=== PATIENT | female | born 1975 | race Caucasian/White ===

== ENCOUNTER 2021-11-23 13:52 | Emergency (ER) | payer BC, MEDICARE, OTHER ==
[~2021-11-23] VITALS: Ht 172.7 cm; Wt 129.0 kg
[~2021-11-23 13:52] MED LIST: KETO10TA2 PO; NO HOME MEDS
[2021-11-23 14:32] LABS: BASOPHILS % (AUTO) 0.4 % (0-1); EOSINOPHILS # (AUTO) 0.1 X10'3 (0-0.9); EOSINOPHILS % (AUTO) 1.4 % (0-6); HEMATOCRIT 35.6 % (35.0-45.0); HEMOGLOBIN 11.9 g/dl (12.0-16.0); LYMPHOCYTES # (AUTO) 2.1 X10'3 (1.1-4.8); LYMPHOCYTES % (AUTO) 23.5 % (21-51); MEAN CORPUSCULAR HEMOGLOBIN 29.5 PG (27.0-31.0); MEAN CORPUSCULAR HGB CONC 33.5 g/dL (33.0-36.5); MEAN CORPUSCULAR VOLUME 88.2 FL (78-98); MEAN PLATELET VOLUME 7.5 FL (7.4-10.4); MONOCYTES # (AUTO) 0.7 X10'3 (0-0.9); MONOCYTES % (AUTO) 7.8 % (2-12); NEUTROPHILS # (AUTO) 5.9 X10'3 (1.8-7.7); NEUTROPHILS % (AUTO) 66.9 % (42-75); PLATELET COUNT 288 X10'3 (140-440); RED BLOOD COUNT 4.04 X10'6 (4.20-5.60); WHITE BLOOD COUNT 8.8 X10'3 (4.5-11.0)
[2021-11-23 14:40] LABS: ALANINE AMINOTRANSFERASE 22 U/L (12-78); ALBUMIN 3.4 G/DL (3.4-5.0); ALBUMIN/GLOBULIN RATIO 0.7 (1.1-1.5); ALKALINE PHOSPHATASE 108 IU/L (46-116); ANION GAP 14 (8-16); ASPARTATE AMINO TRANSFERASE 16 U/L (10-37); BILIRUBIN,TOTAL 0.3 MG/DL (0.1-1.0); BLOOD UREA NITROGEN 27 MG/DL (7-18); BUN/CREATININE RATIO 22.5 (6.6-38.0); CALCIUM 8.7 MG/DL (8.5-10.1); CHLORIDE 106 MMOL/L (99-107); GLUCOSE 99 MG/DL (70-104); LIPASE < 50 U/L (73-393); POTASSIUM 3.6 MMOL/L (3.5-5.1); SODIUM 139 MMOL/L (135-145); TOTAL CARBON DIOXIDE 19.2 MMOL/L (24-32); eGFR 48 ML/MIN
[2021-11-23 14:58] LABS: CLARITY,URINE SLIGHTLY CLOUDY (Clear); COLOR,URINE YELLOW (Yellow); GLUCOSE, URINE NEGATIVE (Neg); KETONES,URINE NEGATIVE (Neg); LEUKOCYTE ESTERASE ,URINE NEGATIVE (Neg); NITRITES, URINE NEGATIVE (Neg); OCCULT BLOOD,URINE MODERATE (Neg); PROTEIN,URINE NEGATIVE (Neg); UROBILINOGEN,URINE 0.2 E.U/dL (0.2-1.0)
[2021-11-23 15:01] LABS: URINE HCG NEGATIVE (NEG)
[2021-11-23 15:15] LABS: UA COLLECTION TYPE CLN CATCH MIDSTREAM
[2021-11-23 15:16] LABS: SQUAMOUS EPITHELIAL CELL,UR MODERATE /LPF (FEW)
[2021-11-23 15:17] LABS: BACTERIA,URINE FEW /HPF (Neg); RBC,URINE 50-100 /HPF (0-2)
[2021-11-23] MEDS ORDERED: IBUP-1985 PO (16:26)
[2021-11-23] MEDS ORDERED: CEPH-585 PO (16:26)
[2021-11-23] MEDS ORDERED: HYDR-3972 PO (16:26)
[2021-11-23] MEDS ORDERED: FLO0.4C PO (16:26)
[2021-11-23] MEDS ORDERED: ondansetron 4mg rapidly disintigrating tab PO ONE (16:30)
[2021-11-23] MEDS ORDERED: ketorolac trometh. 30mg/ml inj. IV ONE (16:30)
[2021-11-23] MEDS ORDERED: cephalexin 250mg capsule PO ONE (16:30)
[2021-11-23] MEDS ORDERED: normal saline 1000ML IV soln IVB ONE (16:30)
[2021-11-23] MEDS ORDERED: ONDA-104 PO (16:35)
--- NOTE | 2021-11-23 18:22 | NUR ---
bedside report to tyler medina
[2021-11-23 19:23] VITALS: BP 113/68
== END 2021-11-23 19:26 | disposition home or self-care (01) ==
LOC: ER 13:53
DX: R82.71 Bacteriuria (principal); N20.0 Calculus of kidney; Z88.0 Allergy status to penicillin; Z79.899 Other long term (current) drug therapy
CPT/HCPCS: 36415; 74018; 74176; 80053; 81001; 81025; 83690; 85025; 87088; 96361; 96374; 99285; J1885; J7030

== ENCOUNTER 2023-03-13 18:46 | Emergency (ER) | payer OTHER ==
[~2023-03-13] VITALS: Ht 172.7 cm; Wt 133.6 kg
[~2023-03-13 18:46] MED LIST changes: +IBUP-1985 PO; +ONDA-104 PO
[2023-03-13 18:48] VITALS: BP 135/91
[2023-03-13 19:12] LABS: URINE HCG NEGATIVE (NEG)
[2023-03-13 19:15] LABS: CLARITY,URINE SLIGHTLY CLOUDY (Clear); COLOR,URINE YELLOW (Yellow); GLUCOSE, URINE NEGATIVE (Neg); KETONES,URINE NEGATIVE (Neg); LEUKOCYTE ESTERASE ,URINE LARGE (Neg); NITRITES, URINE NEGATIVE (Neg); OCCULT BLOOD,URINE TRACE-INTACT (Neg); PH,URINE 6.5 (4.8-8.0); PROTEIN,URINE TRACE mg/dl (Neg); UROBILINOGEN,URINE 0.2 E.U/dL (0.2-1.0)
[2023-03-13 19:24] LABS: UA COLLECTION TYPE CLN CATCH MIDSTREAM
[2023-03-13 19:27] LABS: RBC,URINE 0-2 /HPF (0-2); WBC,URINE 20-30 /HPF (0-4)
[2023-03-13 19:28] LABS: BACTERIA,URINE 2+ /HPF (Neg); MUCUS STRANDS FEW /LPF (Neg); SQUAMOUS EPITHELIAL CELL,UR FEW /LPF (FEW); TRANSITIONAL EPI CELLS,URINE FEW /HPF; TRIPLE PHOSPHATE CRYST 1+ /HPF (NEGATIVE); WBC CLUMPS,URINE FEW /HPF (NEGATIVE)
[2023-03-13 20:08] LABS: BASOPHILS % (AUTO) 0.2 % (0-1); EOSINOPHILS % (AUTO) 0.3 % (0-6); HEMATOCRIT 38.5 % (35.0-45.0); HEMOGLOBIN 12.4 g/dl (12.0-16.0); LYMPHOCYTES # (AUTO) 2.4 X10'3 (1.1-4.8); LYMPHOCYTES % (AUTO) 20.9 % (21-51); MEAN CORPUSCULAR HEMOGLOBIN 28.5 PG (27.0-31.0); MEAN CORPUSCULAR HGB CONC 32.3 g/dL (33.0-36.5); MEAN CORPUSCULAR VOLUME 88.3 FL (78-98); MEAN PLATELET VOLUME 7.9 FL (7.4-10.4); MONOCYTES # (AUTO) 0.9 X10'3 (0-0.9); MONOCYTES % (AUTO) 7.8 % (2-12); NEUTROPHILS % (AUTO) 70.8 % (42-75); PLATELET COUNT 280 X10'3 (140-440); RED BLOOD COUNT 4.36 X10'6 (4.20-5.60); RED CELL DISTRIBUTION WIDTH 13.9 % (11.5-14.5); WHITE BLOOD COUNT 11.3 X10'3 (4.5-11.0)
[2023-03-13 20:17] LABS: ALANINE AMINOTRANSFERASE 16 U/L (12-78); ALBUMIN 3.2 G/DL (3.4-5.0); ALBUMIN/GLOBULIN RATIO 0.7 (1.1-1.5); ALKALINE PHOSPHATASE 117 IU/L (46-116); ANION GAP 7 (8-16); ASPARTATE AMINO TRANSFERASE 14 U/L (10-37); BILIRUBIN,TOTAL 0.5 MG/DL (0.1-1.0); BLOOD UREA NITROGEN 15 MG/DL (7-18); BUN/CREATININE RATIO 10.1 (10.0-20.0); CALCIUM 8.4 MG/DL (8.5-10.1); CHLORIDE 105 MMOL/L (99-107); CREATININE 1.49 MG/DL (0.40-0.90); GLUCOSE 110 MG/DL (70-104); LIPASE < 50 U/L (73-393); POTASSIUM 3.5 MMOL/L (3.5-5.1); SODIUM 136 MMOL/L (135-145); TOTAL CARBON DIOXIDE 23.6 MMOL/L (24-32); TOTAL PROTEIN 7.9 G/DL (6.4-8.2); eGFR 37 ML/MIN
[2023-03-13] MEDS ORDERED: ONDA4TAB12 PO (21:49)
[2023-03-13] MEDS ORDERED: CEFD300C3 PO (21:49)
[2023-03-13] MEDS ORDERED: cephalexin 250mg capsule PO ONE (21:50)
[2023-03-13] MEDS ORDERED: ondansetron 4mg rapidly disintigrating tab PO ONE (21:50)
== END 2023-03-13 22:01 | disposition home or self-care (01) ==
LOC: ER 18:47
DX: N10 Acute pyelonephritis (principal); Z87.442 Personal history of urinary calculi; Z88.0 Allergy status to penicillin; Z79.899 Other long term (current) drug therapy
CPT/HCPCS: 36415; 80053; 81001; 81025; 83690; 85025; 87077; 87088; 87186; 99283

== ENCOUNTER 2025-03-27 01:16 | Emergency (ER) | payer OTHER ==
[~2025-03-27] VITALS: Ht 172.7 cm; Wt 119.6 kg
[~2025-03-27 01:16] MED LIST changes: +ONDA-243 PO
--- NOTE | 2025-03-27 02:18 | Physician Documentation ---
History of Present Illness ~ Chief Complaint: Flank Pain Stated Complaint: ABDOMINAL/SIDE PAIN AND VOMITING Time Seen by MD: 02:03 Primary Medical Doctor: Lidya Grant Source: patient Mode of Arrival: POV, Ambulatory Exam Limitations: no limitations HPI Chief Complaint: RIGHT FLANK PAIN, ABDOMINAL PAIN Caveat: None Independent Historians: None History of Present Illness: Patient is a 49-year-old woman who comes in complaining of right kidney pain" and right flank pain. This pain began three days ago intermittently in has become progressively worse in his now constant. Patient's pain is currently 7/10. Patient has had associated nausea and vomiting. No diarrhea. Patient denies any burning with urination, dysuria urgency or frequency. Patient states that she has had subjective fevers and chills. Patient states that she has had kidney infections and kidney stones in the past with similar symptoms. Review of systems: All systems were reviewed and are negative except for what is indicated in the history of present illness. Past Medical History: Kidney stones Past Surgical History: Urological surgeries Social History: Medications: Reviewed as documented Nursing Notes Allergies: Reviewed as documented in Nursing Notes Medication Reconciliation Allergies: Coded Allergies: Penicillins (Verified Allergy, Unknown, 03/27/25) PT TOLERATED KEFLEX 03/2023 Scheduled Escitalopram Oxalate (Escitalopram Oxalate), 1 TAB PO DAILY, (Reported) Ibuprofen (Ibuprofen), 1 TAB PO Q8H Pantoprazole Sodium (Pantoprazole Sodium), 1 TAB PO DAILY, (Reported) Semaglutide (Ozempic), 1 MG SQ Q7D, (Reported) Discontinued Medications Ketorolac Tromethamine (Ketorolac Tromethamine), 1 TAB PO Q8H Discontinued Reason: patient no longer taking ONDANSETRON ODT 4mg tablet (Ondansetron Odt), 1 TABLET PO Q6H PRN for nausea/vomiting Discontinued Reason: patient no longer taking Ondansetron HCl (Ondansetron HCl), 1 TAB PO Q8H Discontinued Reason: patient no longer taking Past Medical History Past Medical History: Hernia, Kidney Stones Past Surgical History: cholecystectomy Other Past Surgical History: hernia repair Patient History: (Cancer) Malignant carcinoid tumor GRANDFATHER OR GRANDMOTHER, Onset:40's - 50 (Grandfather brain cancer) GRANDFATHER OR GRANDMOTHER, Onset:60 years & older (Maternal grandmother lung cancer) Alzheimer's disease GRANDFATHER OR GRANDMOTHER, Onset:60 years & older (Paternal grandma ) Hypercholesterolemia FAMILY/OTHER, Onset: - No Family History of: (CABG) Coronary artery bypass grafting (CAD) Coronary arteriosclerosis (CHF) Congestive heart failure (COPD) Chronic obstructive lung disease (CVA) Cerebrovascular accident (DM Type 2) Diabetes mellitus type 2 (DM Type1) Diabetes mellitus type 1 (NH) Myocardial infarction (PVD) Peripheral vascular disease (TIA) Transient ischemic attack Aortic aneurysm Asthma Cardiac arrest Alcohol Use: None Drug Use: none Lives with: Family Lives In: Home Occupation: employed Review of Systems All Other Systems at this time: Reviewed and Negative ROS Patient denies any other acute symptoms other than above. All other systems are negative Physical Exam Vital Signs: RN Vital Signs have been reviewed: Yes, Temperature: 100.7, Source: Oral, Heart Rate: 125, Respiratory Rate: 18, BP: 140/69, Pulse Oximetry: 96, Weight: 119.600 Pulse Oximetry Reflects: adequate oxygenation Physical Exam General Appearance: Mild distress HEENT: Normal OP, moist oral mucosa, PERRL, EOMI Neck: supple, normal ROM, trachea midline Pulmonary: No respiratory distress, CTA, BS equal Cardiac: RRR, no murmur, rub or gallop, GI: nondistended, soft, diffuse lower abdominal tenderness, normal bowel sounds, no guarding, no rebound : No CVA tenderness on the right, positive CVA tenderness on the left Extremities: normal ROM, no swelling, non-tender Skin: intact, dry, warm, no rashes Neuro: AAOx3, speech is clear, no focal motor weakness Psych: normal affect, good eye contact, no apparent hallucination, normal speech Progress Progress Note Jaden: d/w Dr. Lamb plan for OR today Results/Orders Reviewed/noted all lab results: Yes Results/Orders Orders - REJI PALACIO MD Ed Iv Pain Medications (03/27/25 02:19) Monitor (03/27/25 02:19) Saline Lock (03/27/25 02:19) Cult Urine + [place] [facility] (03/27/25 02:43) Ct Abdomen Pelvis (03/27/25 04:48) Completed Orders - REJI PALACIO MD Cbc/Diff (03/27/25 02:19) Ondansetron Inj. (Zofran 4mg/2ml Vial) (03/27/25 02:20) Normal Saline 1000ml (0.9% Sodium Chlori (03/27/25 02:20) Ketorolac Trometh 15mg/Ml Vial (Toradol (03/27/25 02:20) Ua W/Microscopic, Cult If Ind (03/27/25 01:37) BMP (03/27/25 04:12) Lipase (03/27/25 04:12) Ct Abdomen Pelvis (03/27/25 04:48) Morphine 4mg/Ml Inj. (Morphine Inj.) (03/27/25 06:00) Ua W/Microscopic, Cult If Ind (03/27/25 05:50) Vital Signs 03/27/25 03/27/25 03/27/25 03/27/25 01:29 02:11 02:37 04:18 Temp 100.7 100.7 Pulse 125 99 Resp 20 18 18 18 B/P (MAP) 140/69 122/62 (82) Pulse Ox 96 98 O2 Flow Rate 0 03/27/25 03/27/25 03/27/25 03/27/25 06:15 06:16 06:29 08:00 Pulse 71 Resp 20 16 16 16 B/P (MAP) 126/69 (88) Pulse Ox 98 03/27/25 03/27/25 03/27/25 03/27/25 08:54 09:48 10:00 10:10 Temp 97.5 Pulse 69 75 76 72 Resp 18 16 12 12 B/P (MAP) 113/69 (84) 91/56 (68) 102/57 (72) 104/64 (77) Pulse Ox 98 97 94 99 O2 Delivery Nasal Cannula Nasal Cannula Nasal Cannula O2 Flow Rate 10.0 10.0 10.0 03/27/25 03/27/25 10:20 10:30 Pulse 75 72 Resp 13 15 B/P (MAP) 105/62 (76) 108/68 (81) Pulse Ox 96 97 O2 Delivery Room Air Room Air O2 Flow Rate 0.0 0.0 Laboratory Tests Test 03/27/25 01:37 03/27/25 02:49 03/27/25 05:23 03/27/25 05:50 Urine Specimen Description Cln catch midstream Cln catch midstream Urine Color Yellow Yellow Urine Clarity Clear Clear Urine pH 6.5 6.5 Urine Specific [place] 1.010 <=1.005 Urine Protein 30 H Negative Urine Glucose (UA) Negative Negative Urine Ketones Negative Negative Urine Occult Blood Small Trace-intact Urine Nitrite Negative Negative Urine Bilirubin Negative Negative Urine Urobilinogen 0.2 0.2 Urine Leukocyte Esterase Small H Small H Urine RBC 0-2 0-2 Urine WBC 30-50 H 50-100 H Urine Squamous Epithelial Cells Moderate Many Urine Bacteria 2+ Few Urine Culture Indicated Indicated Rejected for culture Volume Urine Centrifuged 10 ml 10 ml Urine Comment White Blood Count 10.7 Red Blood Count 4.16 L Hemoglobin 12.2 Hematocrit 37.3 Mean Corpuscular Volume 89.6 Mean Corpuscular Hemoglobin 29.3 Mean Corpuscular Hemoglobin Concent 32.7 L Red Cell Distribution Width 13.5 Platelet Count 209 Mean Platelet Volume 7.8 Neutrophils (%) (Auto) 82.2 H Lymphocytes (%) (Auto) 8.5 L Monocytes (%) (Auto) 8.3 Eosinophils (%) (Auto) 0.8 Basophils (%) (Auto) 0.2 Neutrophils # (Auto) 8.8 H Lymphocytes # (Auto) 0.9 L Monocytes # (Auto) 0.9 Eosinophils # (Auto) 0.1 Basophils # (Auto) 0.0 CBC Comment Chemistry Comments Sodium Level 135 Potassium Level 3.6 Chloride Level 109 H Carbon Dioxide Level 13.1 *L Anion Gap 13 Blood Urea Nitrogen 39 H Creatinine 3.52 H Estimated GFR/1.73 m2 14 BUN/Creatinine Ratio 11.1 Glucose Level 109 H Calcium Level 8.0 L Albumin 2.7 L Lipase 24 Urine Transitional Epithelial Cells Few Test 03/27/25 06:45 Urine Specimen Description Straight cath Urine Color Yellow Urine Clarity Clear Urine pH 6.0 Urine Specific [place] <=1.005 Urine Protein Trace Urine Glucose (UA) Negative Urine Ketones Negative Urine Occult Blood Small Urine Nitrite Negative Urine Bilirubin Negative Urine Urobilinogen 0.2 Urine Leukocyte Esterase Moderate H Urine RBC 0-2 Urine WBC 10-20 H Urine Squamous Epithelial Cells Few Urine Bacteria Few Urine Mucus None seen Urine Culture Indicated Indicated Volume Urine Centrifuged 10 ml Urine Comment Microbiology Date/Time Source Procedure Growth Status 03/27/25 07:48 Urine Straight Cath Urine Culture - Preliminary NO GROWTH AFTER 1 DAY Resulted Medical Decision Making Findings Differential diagnosis includes but is not limited to: Pyelonephritis, ureteral colic, hydronephrosis, renal colic, urinary tract infection Laboratory data independent interpretation: CBC: Unremarkable CMP: Urinalysis: WBC 30-50, RBC 0-2, moderate epithelial cells, nitrite negative Emergency department course/medical decision-making: Patient presents with symptoms that may be consistent with pyelonephritis or kidney stones. We do not have CT imaging this evening. Patient is afebrile nontoxic appearing. Patient is given Zofran 4 mg IV, Toradol 15 mg IV for her pain and 1 L of normal saline. 3:18 a.m.: Patient appears comfortable and is sleeping. Consultation/communications: Departure Disposition: ADMITTED INPATIENT Admitted to Inpatient Unit: other Impression: Primary Impression: Urolithiasis Qualified Codes: N20.1 - Calculus of ureter Additional Impression: Renal failure Qualified Codes: N17.9 - Acute kidney failure, unspecified Referrals: NO PRIMARY CARE PROVIDER (PCP) Signature Scribe Signature: No scribe Attestation: No scribe REJI PALACIO MD Mar 27, 2025 02:18 MIGUELITO FANG MD Mar 27, 2025 07:34
[2025-03-27 02:29] LABS: LEUKOCYTE ESTERASE ,URINE SMALL (Neg); NITRITES, URINE NEGATIVE (Neg); OCCULT BLOOD,URINE SMALL (Neg)
[2025-03-27 02:31] LABS: UA COLLECTION TYPE CLN CATCH MIDSTREAM
[2025-03-27] MEDS: normal saline 1000ML IV soln IVB ONE (02:36)
[2025-03-27] MEDS: ondansetron/PF 4mg/2ml inj IV ONE (02:37)
[2025-03-27] MEDS: ketorolac trometh 15mg/ml vial 15 MG/ML ML IV ONE (02:37)
[2025-03-27 02:42] LABS: SQUAMOUS EPITHELIAL CELL,UR MODERATE /LPF (FEW)
[2025-03-27 03:02] LABS: MEAN PLATELET VOLUME 7.8 FL (7.4-10.4); RED CELL DISTRIBUTION WIDTH 13.5 % (11.5-14.5)
[2025-03-27 04:18] VITALS: TEMP 100.7
[2025-03-27 05:59] LABS: LEUKOCYTE ESTERASE ,URINE SMALL (Neg); NITRITES, URINE NEGATIVE (Neg); OCCULT BLOOD,URINE TRACE-INTACT (Neg)
[2025-03-27 06:04] LABS: SQUAMOUS EPITHELIAL CELL,UR MANY /LPF (FEW); UA COLLECTION TYPE CLN CATCH MIDSTREAM
[2025-03-27 06:06] LABS: CREATININE 3.52 MG/DL (0.40-0.90); eCRCL 19 ML/MIN; eGFR 14 ML/MIN
--- NOTE | 2025-03-27 06:11 | RADIOLOGY REPORT ---
EXAM: CT CT ABDOMEN PELVIS HISTORY: Abdominal Pain COMPARISON: CT ABDOMEN PELVIS on DOS: 11/23/21 TECHNIQUE: Helical CT images of the abdomen and pelvis were performed without contrast. Sagittal and coronal ref ormatted images were obtained. This CT exam was performed using one or more of the following dose red uction techniques: Automated exposure control, adjustment of the mA and/or kV according to patient si ze, or use of iterative reconstruction technique. Radiation Dose: CT Abdomen/Pelvis: CTDIvol 35.9 mGy, DLP 1848.4 mGy*cm. FINDINGS: Urinary tract: There is a right ureteropelvic junction calculus measuring 8 mm (image 60, series 2) with associated moderate right hydronephrosis. There are numerous bilateral nonobstructing renal luz culi. There is left renal midpole cortical cyst. There is left renal cortical atrophy. There is le ft mild hydronephrosis without hydroureter or obstructing calculi. No urinary bladder calculi or abn ormal wall thickening. Miscellaneous: The lung bases are clear. The heart is not enlarged. The gallbladder is surgically a bsent. There are postoperative changes of ventral abdominal herniorrhaphy with mesh. The liver measu res 19 cm longitudinal. The noncontrast spleen, pancreas, and adrenal glands are unremarkable. No ab dominal aortic aneurysm. No abnormal bowel dilatation, free air, free fluid, or suspicious adenopath y. The appendix is not dilated and does not appear inflamed. There is a left ovarian 2.5 cm homogene ous cyst (image 96, series 2). There are multiple phleboliths in the pelvis. There is advanced lumbar degenerative disc disease with significant neural foraminal stenosis bilaterally at that level. IMPRESSION: 1. Moderate right hydronephrosis secondary to ureteropelvic junction 8 mm calculus. 2. Bilateral nonobstructing nephrolithiasis. 3. Mild hepatomegaly. 4. Postoperative changes of cholecystectomy and ventral abdominal herniorrhaphy with mesh. 5. Advanced degenerative disc disease L5-S1 with significant neural foraminal stenosis bilaterally at that level. These findings May correspond to lower extremity radicular symptoms in the L5 nerve tiffanie t distributions.
[2025-03-27 06:16] LABS: TOTAL CARBON DIOXIDE 13.1 MMOL/L (24-32)
[2025-03-27] MEDS: morphine 4 MG/ML inj SYRINge IV ONE (06:29)
[2025-03-27] MEDS: acetaminophen 1,000mg/100ml IV 100 ML IV SCH (06:58)
[2025-03-27 07:43] LABS: LEUKOCYTE ESTERASE ,URINE MODERATE (Neg); NITRITES, URINE NEGATIVE (Neg); OCCULT BLOOD,URINE SMALL (Neg)
[2025-03-27 07:46] LABS: UA COLLECTION TYPE STRAIGHT CATH
[2025-03-27 07:48] LABS: MUCUS STRANDS NONE SEEN /LPF (Neg); SQUAMOUS EPITHELIAL CELL,UR FEW /LPF (FEW)
[2025-03-27] MEDS ORDERED: SEMA1PEN3 SQ (08:01)
[2025-03-27] MEDS ORDERED: ESCI-8 PO (08:01)
[2025-03-27] MEDS ORDERED: PANT40TA54 PO (08:01)
--- NOTE | 2025-03-27 08:57 | CONSULTATION REPORT ---
History of Present Illness Providers to CC Right flank pain, nausea, vomiting, ureteral stone. Refering MD: Lidya Grant History of Present Illness 49-year-old white female with a history of kidney stone disease requiring endoscopic removal presenting with three days of right flank pain now with nausea and vomiting. CT images demonstrated a 6 mm right proximal ureteral stone with proximal hydronephrosis and several small lower pole calyceal stones. Her left kidney demonstrated punctate nonobstructing stones. Serum creatinine on presentation was 3.52. Allergies: Coded Allergies: Penicillins (Verified Allergy, Unknown, 03/27/25) Home Medications Home Medications Active Ibuprofen 600 Mg Tablet 1 Tab PO Q8H 10 Days Reported Pantoprazole Sodium 40 Mg Tablet.dr 1 Tab PO DAILY Ozempic (Semaglutide) 1 Mg/0.75 Ml (4 Mg/3 Ml) Pen.injctr 1 Mg SQ Q7D Escitalopram Oxalate 10 Mg Tablet 1 Tab PO DAILY Past Medical History Medical History Comment Kidney stone disease. Past Surgical History Surgical History Comment Ureteroscopic laser lithotripsy. Past Family History Family History Comment Noncontributory. Family History: (Cancer) Malignant carcinoid tumor GRANDFATHER OR GRANDMOTHER, Onset:40's - 50 (Grandfather brain cancer) GRANDFATHER OR GRANDMOTHER, Onset:60 years & older (Maternal grandmother lung cancer) Alzheimer's disease GRANDFATHER OR GRANDMOTHER, Onset:60 years & older (Paternal grandma ) Hypercholesterolemia FAMILY/OTHER, Onset:'s - No Family History of: (CABG) Coronary artery bypass grafting (CAD) Coronary arteriosclerosis (CHF) Congestive heart failure (COPD) Chronic obstructive lung disease (CVA) Cerebrovascular accident (DM Type 2) Diabetes mellitus type 2 (DM Type1) Diabetes mellitus type 1 (ND) Myocardial infarction (PVD) Peripheral vascular disease (TIA) Transient ischemic attack Aortic aneurysm Asthma Cardiac arrest Past Social History Social History Comment Noncontributory. Health Maintenance Health Maintenance Denies substance abuse. Physical Exam Last Vital Signs Recorded: RN Vital Signs have been reviewed: Yes, Temperature: 100.7, Source: Oral, Heart Rate: 99, Respiratory Rate: 16, BP: 122/62, Pulse Oximetry: 98, Weight: 119.600 General Appearance: alert, no apparent distress EENT: PERRL/EOMI Neck: normal inspection Respiratory: no respiratory distress Chest: no accessory muscle use Cardiovascular: regular rate, rhythm Gastrointestinal: normal palpation, non-tender Back: normal inspection Extremities: normal range of motion Neurologic: oriented x4 Psychiatric: normal mood/affect Skin: normal color, warm/dry Lymphatic: no adenopathy Review of Systems ROS ROS Comments: Normal 12 system review Results Diagram Lab Result Diagram: 03/27/25 0249 03/27/25 0523 Assessment/Plan Problems/Diagnosis: (1) Right ureteral calculus Assessment & Plan: The patient has an obstructing right ureteral stone with associated hydronephrosis and development of acute renal failure. Urgent placement of a ureteral stent is indicated. I described placement of a ureteral stent in detail to the patient today along with the risks, benefits, and alternatives. The patient demonstrated understanding of this discussion and agreed to proceed with the above-mentioned surgery. ERMELINDA MAY MD Mar 27, 2025 08:57
[2025-03-27] MEDS ORDERED: fentaNYL/PF 50MCG/1 ML 2ML syringe ONE (09:14)
[2025-03-27] MEDS ORDERED: midazolam 1 mg/ML 2ml injection ONE (09:15)
[2025-03-27] MEDS ORDERED: propofol inj 20 ML IV ONE (09:15)
[2025-03-27] MEDS ORDERED: iohexol 300mg/ml 100ml inj. ONE (09:29)
[2025-03-27] MEDS ORDERED: dexamethasone sod phosphate 4mg/ml inj. ONE (09:31)
[2025-03-27] MEDS ORDERED: ondansetron/PF 4mg/2ml inj ONE (09:36)
--- NOTE | 2025-03-27 09:40 | OPERATIVE REPORT ---
Operative Report Providers to CC ~ Date of Procedure: Mar 27, 2025 Pre-Operative Diagnosis: Right ureteral stone with hydronephrosis Post-Operative Diagnosis SAME as PRE-Op Procedure Performed One. Cystourethroscopy. 2. Right retrograde pyelography. 3. Right ureteral stone manipulation. 4. Right ureteral stent placement. 5. Fluoroscopy with interpretation less than 1 hour. Surgeon: Guy May MD Radiologic Technologist Chief None. Anesthesiologist: Keyur Jc Type of Anesthesia: General Findings: Fluoroscopic findings left retrograde pyelography demonstrated complete impaction of the proximal ureter with a radiolucent filling defect. Final images demonstrated coiling of the ureteral stent within the renal pelvis and bladder. Complications None. Prosthetics\Implants used: Six [place] by 24 cm ureteral stent. Estimated Blood Loss: None. Specimen Removed: None. Description of Procedure: The patient was under the effects of general anesthesia and in dorsal lithotomy with the genitals prepped and draped in sterile fashion. The urethra was entered with a 21 [place] scope and we observed normal anatomy with orthotopic ureteral orifices. The right orifice was cannulated and retrograde pyelography demonstrated the above-mentioned findings. Contrast would not move proximal to a radiolucent filling defect in the proximal ureter. A wire was advanced up to the level of the stone but even this wire would not travel into the upper tract. With the open-ended catheter we reach the stone over our wire and with gentle pressure the stone was dislodged allowing our wire to enter into the upper tract. The open-ended catheter was then offloaded and over the previously placed wire a six [place] by 24 cm stent was advanced and deployed within the renal pelvis. Good coiling was also observed within the bladder and clear drainage through the stent was observed. Counts repoted as correct: Yes X-Ray findings: No Foreign body GUY MAY MD Mar 27, 2025 09:40
[2025-03-27 09:48] VITALS: BP 91/56; PULSE 75; RESP 16; O2SAT 97
[2025-03-27] MEDS ORDERED: HYDROmorphone/PF 0.2 MG/ML SYRINGE IV PRN ×2 (09:55)
[2025-03-27] MEDS ORDERED: morphine 4 MG/ML inj SYRINge IV PRN (09:55)
[2025-03-27] MEDS ORDERED: acetaminophen 1,000mg/100ml IV 100 ML IV PRN (09:55)
[2025-03-27] MEDS ORDERED: ringers solution, lacted 1,000 ML IV SCH (09:55)
[2025-03-27] MEDS ORDERED: hydrALAZINE 20mg/ml inj. IV PRN (09:55)
[2025-03-27] MEDS ORDERED: ondansetron/PF 4mg/2ml inj IV PRN (09:55)
[2025-03-27] MEDS ORDERED: labetalol 20mg/4ml (5mg/ml) syringe IV PRN (09:55)
[2025-03-27 10:00] VITALS: BP 102/57; PULSE 76; RESP 12; O2SAT 94
[2025-03-27 10:10] VITALS: BP 104/64; PULSE 72; RESP 12; O2SAT 99
[2025-03-27 10:20] VITALS: BP 105/62; PULSE 75; RESP 13; O2SAT 96
[2025-03-27 10:30] VITALS: BP 108/68; PULSE 72; RESP 15; O2SAT 97
== END 2025-03-27 11:06 | disposition home or self-care (01) ==
LOC: ER 01:17
DX: N20.9 Urinary calculus, unspecified (principal); N17.9 Acute kidney failure, unspecified; Z79.899 Other long term (current) drug therapy; Z88.0 Allergy status to penicillin; Z90.49 Acquired absence of other specified parts of digestive tract; Z98.890 Other specified postprocedural states
CPT/HCPCS: 36415; 52330; 52332; 74176; 80048; 81001; 83690; 85025; 87088; 96361; 96365; 96375; 99285; C1769; C2617; J0131; J0690; J1100; J1885; J2250; J2270; J2405; J2704; J3010; J3490; J7030; Q9967; Z7506; Z7512; A4355; A4618